=== PATIENT | male | born 1960 | race Caucasian/White ===

== ENCOUNTER 2018-02-21 09:03 | Inpatient (IN) | payer OTHER ==
[2017-12-26 16:09] VITALS: BMI 28.0
[2018-02-06 16:50] LABS: BASO % 1.3 %; BASO ABS # 0.07 K/uL (0-0.2); EOS % 4.9 %; EOS ABS # 0.26 K/uL (0-0.5); HEMATOCRIT 38.8 % (42-52); HEMOGLOBIN 13.9 g/dL (14.0-18.0); IG# 0.02 K/uL (0.00-0.02); LYMPH % 22.4 %; LYMPH ABS # 1.19 K/uL (1.2-3.4); MEAN CELL VOLUME 86.6 fL (80-100); MEAN CORPUSCULAR HGB CONC 35.8 g/dl (32-36); MEAN PLATELET VOLUME 8.4 fL (7.4-10.4); MONO ABS # 0.53 K/uL (0.11-0.59); NEUT ABS # 3.24 K/uL (1.4-6.5); PLATELET COUNT 286 K/uL (130-400); RED CELL DISTRIBUTION WIDTH CV 12.5 % (11.5-14.5); RED CELL DISTRIBUTION WIDTH SD 40.2 fL (36.4-46.3); WHITE BLOOD COUNT 5.31 K/uL (4.8-10.8)
[2018-02-06 16:56] LABS: PTT PATIENT 25.4 SECONDS (21.0-31.0)
[2018-02-06 17:22] LABS: ALBUMIN 4.2 gm/dl (3.4-5.0); CALCIUM 9.2 mg/dl (8.5-10.1); CREATININE 0.69 mg/dl (0.60-1.40); POTASSIUM 4.1 mmol/L (3.5-5.1)
[2018-02-07 06:45] LABS: HEMOGLOBIN A1C 5.4 % (4.5-5.6)
--- NOTE | 2018-02-20 17:07 | HISTORY & PHYSICAL EXAMINATION ---
DATE OF ADMISSION: 02/21/2018 CHIEF COMPLAINT: Recurrent shoulder dislocation and pain. HISTORY OF PRESENT ILLNESS: This is a 57-year-old male patient of Dr. Carvalho who is complaining of chronic right shoulder pain and recurrent dislocations. The patient had a reversed total shoulder arthroplasty in 2017. Since then, he has developed recurrent dislocations and pain. At this point in time after failure of conservative treatment, the patient wishes to proceed with a right shoulder revised humeral implant poly exchange and baseplate exchange of his reverse total shoulder arthroplasty. PAST MEDICAL HISTORY: Hypertension, hypercholesterolemia, asthma, osteoarthritis, spine problems, sciatica, acid reflux, dental issues. SOCIAL HISTORY: Nonsmoker, nondrinker. PAST SURGICAL HISTORY: Back fusion, left knee replacement, right shoulder replacement. FAMILY HISTORY: Noncontributory. REVIEW OF SYSTEMS: Persistent right shoulder pain and recurrent dislocations. Otherwise, denies any shortness of breath, chest pain, nausea, vomiting or any other joint complaints. MEDICATIONS: 1. Lipitor 40 mg daily. 2. Naprosyn 500 mg twice daily. 3. Lisinopril 40 mg daily. 4. Tegretol 200 mg 1 tablet in the a.m., 2 at lunch, and 2 at night. 5. Nifedipine 30 mg daily. 6. Ambien 5 mg daily. 7. Celexa 20 mg daily. 8. Cyclobenzaprine 10 mg 3 times daily. 9. Flonase 50 mcg actuation 2 sprays daily as needed. 10. Azelastine 0.15% nasal spray 2 times daily. ALLERGIES: No known drug allergies. No foam tape. PHYSICAL EXAMINATION: GENERAL: Well-developed, well-nourished 57-year-old male, in no acute distress. He is alert and oriented x3 and pleasant. HEENT: Normocephalic, atraumatic. Extraocular motions are intact. Pupils are equal, reactive to light. HEART: Regular rate and rhythm, no murmurs appreciated. LUNGS: Clear. ABDOMEN: Soft and nontender. Bowel sounds are present. EXTREMITIES: Right shoulder reveals painful range of motion. He has 4/5 strength with pain. NEUROLOGIC: Neurovascularly he is intact in his right upper extremity. DIAGNOSES: Right shoulder recurrent dislocation status post reverse total shoulder arthroplasty. He also has a history of hypertension, hypercholesterolemia, asthma, osteoarthritis, spine problems, sciatica, acid reflux, and dental issues. PLAN: The patient was advised of his diagnosis. Indications, risks, benefits, postop course have all been reviewed. The patient wished to proceed with a right shoulder revision humeral implant poly exchange and baseplate exchange. Necessary consent forms, preoperative testing and clearances will be obtained.
[~2018-02-21] VITALS: Ht 172.7 cm; Wt 86.5 kg
[2018-02-21] VITALS (10 sets, daily range): BP systolic 107–147; BP diastolic 67–88; PULSE 67–98; TEMP 36.5–37; O2SAT 76–97; Ht 172.7 cm; Wt 86.5 kg
[~2018-02-21 09:03] MED LIST: ACETAMINOPHEN 500 MG TAB PO SCH; ATOR-24 PO; ATROPINE SULFATE 0.1 MG/ML 5ML SYR IV PRN; AZEL0.056 INTNAS; CARB200T PO; CEFAZOLIN 2000MG IV PUSH 15 ML IV SCH; CLX20 PO; CYCL10TA6 PO; CeleBREX 200 MG CAP PO SCH; DEXAMETHASONE 4 MG TAB PO SCH; DEXAMETHASONE SOD INJ 4 MG/ML VIAL ONE; EpHEDrine SULFATE INJ 50 MG/ML AMP IV PRN; FAMOTIDINE 20 MG TAB PO SCH; FENTANYL CITRATE INJ 50 MCG/1 ML 2 ML VIAL IV PRN; FENTANYL CITRATE INJ 50 MCG/1 ML 2 ML VIAL ONE; FEXO1TAB58 PO; FLUT0.15 NAE; GABAPENTIN 600 MG PO SCH; HYDR-3983 PO; HYDROmorphone INJ 0.5 MG/0.5 ML SYR IV PRN; LABETALOL HCL IV 5 MG/ML 20ML IV PRN; LACTATED RINGER'S 1000ML 1,000 ML IV SCH; LIDOCAINE HCL 2% 2 ML VIAL (20MG/ML) ONE; LSN40 PO; MEPERIDINE HCL 25 MG/ML CARP IV PRN; METOCLOPRAMIDE HCL 10 MG TAB PO SCH; MIDAZOLAM HCL 1 MG/ML 2ML VIAL ONE; NAPR-1169 PO; NIFE30TA83 PO; ONDANSETRON INJ 2 MG/ML 2 ML VIAL IV PRN; ONDANSETRON INJ 2 MG/ML 2 ML VIAL ONE; PROPOFOL IV EMULSION 10 MG/ML 20 ML VIAL ONE; ROPIVACAINE 0.5% 5 MG/ML 30 ML VIAL ONE; VNTHFA/IN INH; ZOLP5TAB6 PO
[2018-02-21] MEDS ORDERED: PROPOFOL IV EMULSION 10 MG/ML 20 ML VIAL ONE ×2 (09:21→15:25)
[2018-02-21] MEDS ORDERED: BACITRACIN 50000 UNIT VIAL ONE (11:54)
--- NOTE | 2018-02-21 12:44 | History & Physical Bridge Note ---
H&P Re-Evaluation Bridge Note: I have examined the patient, reviewed the History & Physical and in the interval since the performance of the History & Physical I have noted the following changes of clinical significance: No changes noted
[2018-02-21] MEDS ORDERED: EpHEDrine SULFATE 50MG/5ML SYR ONE (13:52)
[2018-02-21] MEDS ORDERED: NEOSTIGMINE METHYLSULFATE 5 MG/5 ML SYR ONE (15:11)
[2018-02-21] MEDS ORDERED: GLYCOPYRROLATE INJ 0.2 MG/ML VIAL ONE (15:11)
--- NOTE | 2018-02-21 15:39 | [facility] Post Operative Brief Note ---
Immediate Operative Summary Operative Date February 21, 2018. Pre-Operative Diagnosis Right shoulder recurrent dislocation, status post Reverse total shoulder arthroplasty Post-Operative Diagnosis same Procedure(s) Performed Right shoulder revision, humeral components- tray and poly Surgeon Dr Thomson [employer] Technologist Surgeon(s) Tavares Lind PA-C Estimated Blood Loss 75 ml Findings Consistent with Post-Op Diagnosis Specimens a. Explants- right shoulder -2 pieces Drains 2 hemovac Anesthesia Type General Regional Complication(s) none Disposition Disposition: Recovery Room / PACU Overlapping Procedure I was present for: the critical portions of procedure.
[2018-02-21] MEDS ORDERED: MoRPHine SULFATE 4 MG/ML 1 ML CARP\\VIAL IV PRN (15:45)
[2018-02-21] MEDS ORDERED: ALBUTEROL HFA 8 GM INHALER INH PRN (15:45)
[2018-02-21] MEDS ORDERED: ZOLPIDEM TARTRATE 5 MG TAB PO PRN (15:45)
[2018-02-21] MEDS ORDERED: METOCLOPRAMIDE HCL INJ 5 MG/ML 2 ML VIAL IV PRN (15:45)
[2018-02-21] MEDS ORDERED: NALOXONE HCL 0.4 MG/1 ML VIAL/CARP IV PRN (15:45)
[2018-02-21] MEDS ORDERED: FLUTICASONE PROPIONATE NA SPR 16 GM BTL NAE PRN (15:45)
[2018-02-21] MEDS ORDERED: ONDANSETRON INJ 2 MG/ML 2 ML VIAL IV PRN (15:45)
[2018-02-21] MEDS ORDERED: SOD PHOSPHATE/SOD BIPHOSPHATE ENEMA 132 ML BTL PR PRN (15:45)
[2018-02-21] MEDS ORDERED: BISACODYL 10 MG SUPP PR PRN (15:45)
[2018-02-21] MEDS ORDERED: CYCLOBENZAPRINE HCL 10 MG TAB PO PRN (15:45)
[2018-02-21] MEDS ORDERED: MAGNESIUM HYDROXIDE SUSP 30 ML UDC PO PRN (15:45)
--- NOTE | 2018-02-21 16:10 | Anesthesiology Progress Note ---
Anesthesia Post Op Note Date & Time February 21, 2018 at 16:10 Vital Signs Pain Intensity: 0 Vital Signs Past 12 Hours Date Time Temp Pulse Resp B/P (MAP) Pulse Ox O2 Delivery O2 Flow Rate FiO2 02/21/18 16:00 75 16 117/74 96 Nasal Cannula 2 02/21/18 15:50 79 16 127/80 95 Nasal Cannula 2 02/21/18 15:40 37.0 76 16 133/78 96 Nasal Cannula 2 02/21/18 09:45 36.5 67 20 147/88 94 Room Air 02/21/18 09:32 36.5 67 20 147/88 Notes Mental Status: alert / awake / arousable, participated in evaluation Pt Amnestic to Procedure: Yes Nausea / Vomiting: adequately controlled Pain: adequately controlled Airway Patency, RR, SpO2: stable & adequate BP & HR: stable & adequate Hydration State: stable & adequate Anesthetic Complications: no major complications apparent
--- NOTE | 2018-02-21 16:51 | DIAGNOSTIC IMAGING REPORT ---
R SHOULDER MIN 2 VIEWS ROUTINE CLINICAL HISTORY: 57 years-old Male presenting with Post shoulder surgery. TECHNIQUE: Frontal and transcatheter Y views of the right shoulder were obtained. COMPARISON: 08/10/2017. FINDINGS: Reverse total right shoulder arthroplasty again noted. Overlying skin manas. A surgical drain is in place. No malalignment. No periprosthetic fracture. The acromioclavicular joint is congruent. No rib fracture is evident. Low lung volumes in the right hemithorax. No radiographic soft tissue abnormality. IMPRESSION: Expected postsurgical changes status post reverse right shoulder arthroplasty. No hardware complication. Electronically signed by: Yao Moya M.D. 02/21/2018 4:50 PM Dictated Date/Time: 02/21/2018 4:48 PM
[2018-02-21] MEDS: D5W AND 1/2NSS + 20MEQ KCL 1,000 ML IV SCH (17:15)
--- NOTE | 2018-02-21 19:22 | OPERATIVE REPORT ---
DATE OF OPERATION: 02/21/2018 INDICATION FOR PROCEDURE: Patient is a 57-year-old male who I performed a reverse total shoulder replacement on. He developed a postoperative instability. He was able to reduce his shoulder after each instability episodes, never had to have this reduced by healthcare professional. His radiographs demonstrated he has well-aligned reverse shoulder replacement. His exam demonstrates that his shoulder is stable in a combined abduction, external rotation position. Stable with forward flexion and posterior stress. He does have some shuck inferiorly. So, he has developed some increased ligamentous laxity related to his subluxations or dislocations. Patient has failed conservative management, now presents for revision of the humerus implant for stability. His workup included a sed rate which was 7, CRP 0.3, white count normal and no signs of infection. The patient has no pain and has not had any pain since his original surgery. PREOPERATIVE DIAGNOSIS: Postoperative instability, likely due to ligamentous laxity status post right reverse total shoulder replacement. POSTOPERATIVE DIAGNOSES: Postoperative instability, likely due to ligamentous laxity status post right reverse total shoulder replacement with anterior-inferior instability. PROCEDURE: Revision of the humeral baseplate and polyethylene components of a reversed total shoulder replacement. SURGEON: Dr. Thomson. YARD LOADER OPERATOR: Silvaino Lind PA-C ANESTHESIA: Regional block general. OPERATIVE PROCEDURE: Patient was taken to the operating room, anesthetized under regional block and general anesthetic. Shoulder was positioned on the operating table in about a 30 degree beach chair position. A towel was placed on the medial border of his right scapula. He was translated to right side of the bed so his shoulder could be manipulated off the bed as necessary. His head was placed on a foam headrest. He had protective eyewear placed. He had TEDs and SCDs placed. Right shoulder exam demonstrated he had some inferior sulcus sign positive, but shoulder was completely stable with abduction, external rotation and forward elevation, adduction. His right shoulder was sterilely prepped and draped with ChloraPrep. An anterior deltopectoral incision was performed. Skin was incised sharply, subcutaneous flaps were elevated. The cephalic vein was dissected out and retracted laterally with the deltoid. The pectoralis was retracted medially. The scar tissue was divided between these 2 planes down to the clavipectoral fascia and the scarred clavipectoral fascia was released identifying the conjoined tendon and strap muscle. The upper centimeter of the pectoralis was released for inferior exposure. Patient's subscapularis tendon tissue was tendinopathic in appearance. He had a soft tissue over the internal rotator cuff area. Some of this was just scarred tissue not meaningful rotator cuff tissue. I released some of the tissue between the posterior cuff and the deltoid so that we could put a self-retaining retractor in place. Then I made an incision through the rotator interval and then an inferior incision carried down overlying the bicipital groove and humerus where the biceps normally would lie and then an inverted subperiosteal peel type release was performed off the humeral side of the component down along the inferior neck of the humerus staying on bone. The end of the subscapularis tendon tissue was tagged with a #1 Vicryl suture for later repair. The stability of the shoulder was assessed and I could dislocate the shoulder with inferior traction and anterior translation with anterior instability. I looked at the polyethylene in the humerus. There was some wear from recurrent instability. Polyethylene of the humerus was removed with the extraction device and a small osteotome uneventfully. The baseplate was stable. Humeral component was stable. The glenoid component was very stable. There were no signs of infection. The wound was irrigated. We did various trials. We trialed polyethylene with this standard tray. There was still too much inferior shuck and instability so this was exchanged and sequential trials were used until we found the appropriate stability which required a humeral tray with a +12 mm tray and we chose to use the retentive humeral insert to get more stability, although the standard implant did have satisfactory stability. After trialing was completed, the wound was copiously irrigated with antibiotic solution with bacitracin. We dried the Brooks taper of the stem. We did check the stem for stability and stem was completely stable. The past 12 mm high-offset humeral tray was then impacted onto the stem with a tight fit and then the 36+6 mm retentive humeral insert was impacted into the humeral component and then we reduced this to the glenoid sphere, verified stability through full range of motion and we were unable to identify any instability. The wound was copiously irrigated, then the subscapularis was repaired with [id number] #2 FiberWire sutures in [id number] fashion and the rotator was closed with [id number] #2 FiberWire sutures in hniuwz-[id number] fashion. We did, on trialing get some tearing of the cephalic veins, we did tie that off with silk ties to control bleeding. The 2 drains were brought out laterally and placed deep to deltopectoral interval. We did repair the pectoralis split with ilyqzu-no-qmtxj #2 FiberWire suture and then the deltopectoral interval was closed with seqjot-[id number]-adprh #1 Vicryl sutures and the subcutaneous tissue closed with 2-0 Vicryl sutures and skin was closed with manas and the patient had about 75 mL of blood loss and tolerated the procedure well. REDDY Hargrove was my first aid instructor, functioned as first aid instructor for the entire procedure. He assisted in patient positioning, prepping, draping, arm positioning, soft tissue retraction and he assisted in the subcutaneous and skin closure and will participate in postoperative care of the patient. I attest to the content of the Intraoperative Record and any orders documented therein. Any exception s are noted below.
[2018-02-21] MEDS: CEFAZOLIN IV 2,000 MG in SYRINGE 0 ML IV SCH (19:52)
[2018-02-21] MEDS ORDERED: NIFEdipine 30 MG CR TAB PO SCH (21:00)
[2018-02-21] MEDS: ACETAMINOPHEN 500 MG TAB PO SCH (21:11)
[2018-02-21] MEDS: DOCUSATE SODIUM 100 MG CAP PO SCH (21:11)
[2018-02-21] MEDS: CARBAMAZEPINE 200 MG TAB PO SCH (21:11)
[2018-02-22 03:00] VITALS: BP 119/71; PULSE 71; TEMP 36.7; O2SAT 94
[2018-02-22] MEDS: D5W AND 1/2NSS + 20MEQ KCL 1,000 ML IV SCH (03:01)
[2018-02-22] MEDS: CEFAZOLIN IV 2,000 MG in SYRINGE 0 ML IV SCH (03:21)
[2018-02-22] MEDS: OXYCODONE HCL IR 5 MG TAB (IMMEDIATE RELEASE) PO PRN ×2 (04:08→08:34)
[2018-02-22] MEDS: ACETAMINOPHEN 500 MG TAB PO SCH (05:40)
[2018-02-22 05:56] LABS: HEMOGLOBIN 11.1 g/dL (14.0-18.0); MEAN CELL VOLUME 88.4 fL (80-100); MEAN CORPUSCULAR HEMOGLOBIN 30.7 pg (25-34); MEAN CORPUSCULAR HGB CONC 34.7 g/dl (32-36); MEAN PLATELET VOLUME 8.3 fL (7.4-10.4); PLATELET COUNT 232 K/uL (130-400); RED CELL DISTRIBUTION WIDTH CV 12.9 % (11.5-14.5); RED CELL DISTRIBUTION WIDTH SD 41.7 fL (36.4-46.3); WHITE BLOOD COUNT 9.86 K/uL (4.8-10.8)
[2018-02-22 06:38] LABS: CALCIUM 7.9 mg/dl (8.5-10.1); CREATININE 0.78 mg/dl (0.60-1.40); POTASSIUM 3.7 mmol/L (3.5-5.1)
[2018-02-22 07:05] VITALS: BP 137/87; PULSE 70; TEMP 37; O2SAT 95
--- NOTE | 2018-02-22 08:16 | Anesthesiology Progress Note ---
Anesthesia Post Op Note Date & Time February 22, 2018 at 08:14 Vital Signs Vital Signs Past 12 Hours Date Time Temp Pulse Resp B/P (MAP) Pulse Ox O2 Delivery O2 Flow Rate FiO2 02/22/18 07:05 37.0 70 18 137/87 (104) 95 Room Air 02/22/18 03:00 36.7 71 16 119/71 (87) 94 Room Air 02/21/18 23:09 37.0 76 16 107/67 (80) 92 Room Air 02/21/18 21:09 98 136/71 (92) Notes Mental Status: alert / awake / arousable, participated in evaluation Pt Amnestic to Procedure: Yes Nausea / Vomiting: adequately controlled Pain: adequately controlled Airway Patency, RR, SpO2: stable & adequate BP & HR: stable & adequate Hydration State: stable & adequate Neuraxial Anesthesia: sensory block resolved Anesthetic Complications: no major complications apparent
--- NOTE | 2018-02-22 08:19 | Orthopedic Progress Note ---
Orthopedic Progress Note Date of Service February 22, 2018. Subjective Post OP Day: 1 Reports: feeling well, pain controlled w PO medications, Denies: complaints, chest pain, SOB, nausea / vomiting, light headedness, calf pain Objective N/V intact, capillary refill less than 2 sec., dressing C/D/I, A&O x3 sling in tact, fingers mobile. Date Time Temp Pulse Resp B/P (MAP) Pulse Ox O2 Delivery O2 Flow Rate FiO2 02/22/18 07:05 37.0 70 18 137/87 (104) 95 Room Air 02/22/18 03:00 36.7 71 16 119/71 (87) 94 Room Air 02/21/18 23:09 37.0 76 16 107/67 (80) 92 Room Air 02/21/18 21:09 98 136/71 (92) 02/21/18 19:53 92 Room Air 02/21/18 19:50 Room Air 02/21/18 19:48 36.8 89 18 107/68 (81) 97 Nasal Cannula 2.0 02/21/18 18:43 36.6 91 18 130/80 (97) 95 Nasal Cannula 2.0 91 02/21/18 17:33 36.6 85 18 130/83 (99) 96 Nasal Cannula 2.0 02/21/18 17:05 36.5 76 18 132/78 (96) 76 Nasal Cannula 2.0 02/21/18 16:40 Nasal Cannula 2.0 02/21/18 16:40 Nasal Cannula 2.0 02/21/18 16:35 36.9 79 18 117/71 (86) 96 Nasal Cannula 2.0 02/21/18 16:20 37.2 69 18 115/69 96 Nasal Cannula 2 02/21/18 16:10 71 16 124/71 96 Nasal Cannula 2 02/21/18 16:00 75 16 117/74 96 Nasal Cannula 2 02/21/18 15:50 79 16 127/80 95 Nasal Cannula 2 02/21/18 15:40 37.0 76 16 133/78 96 Nasal Cannula 2 02/21/18 09:45 36.5 67 20 147/88 94 Room Air 02/21/18 09:32 36.5 67 20 147/88 Laboratory Results 24 Hours: Test 02/22/18 05:34 Hematocrit 32.0 % Hemoglobin 11.1 g/dL Assessment & Plan Assessment: POD #1, Right shoulder revision poly and plate reversed tsa Plan: D/C home, no PT, limited HEP. I have seen and examined the patient, and agree with REDDY Lind's Assessment and Plan. Doing well, N/V intact, pain controlled, no instability since surgery. King Abreu MD
[2018-02-22] MEDS ORDERED: RXC5 PO (08:22)
[2018-02-22] MEDS ORDERED: ACET-24 PO (08:22)
--- NOTE | 2018-02-22 08:23 | Discharge Instructions ---
Discharge Instructions Date of Service February 22, 2018. Admission Reason for Admission: Shoulder Pain Discharge Discharge Diagnosis / Problem: Revision poly and plate reversed tsa Discharge Goals Goal(s): Improve function Activity Recommendations Activity Limitations: as noted below . Instructions / Follow-Up Instructions / Follow-Up ACTIVITY RECOMMENDATIONS: SELF CARE INSTRUCTIONS AFTER TOTAL SHOULDER ARTHROPLASTY REVERSE A. You may do daily exercises as taught in physical therapy while in hospital. No lifting with the operative arm. B. You are to wear your sling/immobilizer at all times EXCEPT when performing your daily exercises and for hygiene purposes. C. You may perform dry, daily dressing changes. Please keep your incision covered. You may shower 48 hours after surgery. Do not apply soap or any ointment/ lotions directly over incision. Do not soak incision in bath tub/swimming pool. D. You may use ice as needed to operative shoulder. SPECIAL CARE INSTRUCTIONS: VERY IMPORTANT TO READ AND REVIEW A. There are a few signs you need to watch for after you are home. Call [facility] at [phone] if you experience any of the followin. Increased severe shoulder pain. Some pain is expected especially when you exercise. 2. Increased swelling in you shoulder or arm; pain or swelling in either upper extremity. 3. Any fluid drainage from the incision. 4. Shortness of breath or chest pain. B. Please call [facility] at [phone] if you have any questions or concerns about your operation or recovery. C. Call your physician if: 1. Temperature is greater than 101 degrees (F). 2. Pain is not relieved by prescribed pain medications. 3. Increase drainage or redness from incision. 4. Unanswered questions or concerns. FOLLOW UP VISIT: Please call [facility] at [phone] to schedule a follow up appointment with Dr. Thomson or his PA in 12-14 days from your surgery date. Current Hospital Diet Patient's current hospital diet: AHA Diet (Heart Healthy) Discharge Diet Recommended Diet: Regular Diet Procedures Procedures Performed: Right shoulder revision, humeral components- tray and poly Pending Studies Studies pending at discharge: no Laboratory Results Hemoglobin A1c Test 02/06/18 16:03 Range/Units Estimated Average Glucose 108 mg/dl Hemoglobin A1c 5.4 4.5-5.6 % Medical Emergencies . Who to Call and When: Medical Emergencies: If at any time you feel your situation is an emergency, please call 911 immediately. . Non-Emergent Contact Non-Emergency issues call your: Primary Care Provider . "Provider Documentation" section prepared by Silviano Lind. . [place] Drug Monitoring Program Search Results: patient reviewed within database, no issues identified
[2018-02-22 08:30] VITALS: O2SAT 95
[2018-02-22] MEDS: DOCUSATE SODIUM 100 MG CAP PO SCH (08:30)
[2018-02-22] MEDS ORDERED: CARBAMAZEPINE 200 MG TAB PO SCH (09:00)
[2018-02-22] MEDS ORDERED: MULTIVITAMIN TAB PO SCH (09:00)
[2018-02-22] MEDS ORDERED: FEXOFENADINE HCL 180 MG TAB PO SCH (09:00)
[2018-02-22] MEDS ORDERED: ATORVASTATIN 40 MG TAB PO SCH (09:00)
[2018-02-22] MEDS ORDERED: PANTOprazole SOD 40 MG TAB PO SCH (09:00)
[2018-02-22] MEDS ORDERED: LISINOPRIL 40 MG TAB PO SCH (09:00)
[2018-02-22] MEDS ORDERED: CITALOPRAM 20 MG TAB PO SCH (09:00)
[2018-02-22 10:20] VITALS: BP 137/87; PULSE 70; TEMP 37; O2SAT 95
[2018-02-22 11:00] VITALS: BP 120/77; PULSE 74; TEMP 37; O2SAT 96
[2018-02-22] MEDS: CARBAMAZEPINE 200 MG TAB PO SCH (12:01)
== END 2018-02-22 12:30 | disposition home or self-care (01) | DRG 483 ==
LOC: C.ACU 09:03 → C.3E 15:47 → ENRESERV 16:15
PROVIDERS: ADMIT Orthopaedic Surgery Sports Medicine; ATTEND Orthopaedic Surgery Sports Medicine
PROC: 0RRJ00Z Replacement of Right Shoulder Joint with Reverse Ball and Socket Synthetic Substitute, Open Approach (ICD-10-PCS; principal; 2018-02-21 12:15)
DX: M24.411 Recurrent dislocation, right shoulder (principal); I10 Essential (primary) hypertension; E78.00 Pure hypercholesterolemia, unspecified; J45.909 Unspecified asthma, uncomplicated; K21.9 Gastro-esophageal reflux disease without esophagitis; Z96.652 Presence of left artificial knee joint; Z96.611 Presence of right artificial shoulder joint